=== PATIENT | male | born 1985 | race Caucasian/White ===

== ENCOUNTER 2025-08-30 09:09 | Outpatient (CLI) | payer OTHER | END 2025-08-30 09:10 | disposition home or self-care (01) | LOC: CSHULT 09:09 | PROVIDERS: ATTEND Nurse Practitioner Family | DX: S39.013A Strain of muscle, fascia and tendon of pelvis, initial encounter (principal) | CPT/HCPCS: 74176 ==

== ENCOUNTER 2025-10-23 13:50 | Outpatient (CLI) | payer OTHER | END 2025-10-23 13:51 | disposition home or self-care (01) | LOC: CSHMRI 13:50 | PROVIDERS: ATTEND Nurse Practitioner Family | DX: S89.92XA Unspecified injury of left lower leg, initial encounter (principal); Y99.0 Civilian activity done for income or pay; S83.242A Other tear of medial meniscus, current injury, left knee, initial encounter ==